=== PATIENT | male | born 1935 | race Caucasian/White ===

== ENCOUNTER 2021-02-07 16:25 | Emergency (ER) | payer MEDICARE, OTHER ==
[2021-02-07] MEDS ORDERED: Bacitracin 1 PK ONE (16:47)
== END 2021-02-07 17:00 | disposition home or self-care (01) ==
LOC: MADERS 16:25
DX: S41.111A Laceration without foreign body of right upper arm, initial encounter (principal); E03.9 Hypothyroidism, unspecified; Z79.899 Other long term (current) drug therapy; X58.XXXA Exposure to other specified factors, initial encounter; Y92.009 Unspecified place in unspecified non-institutional (private) residence as the place of occurrence of the external cause
CPT/HCPCS: 12002

== ENCOUNTER 2024-04-19 10:07 | Emergency (ER) | payer MEDICARE ==
[2024-04-19] MEDS ORDERED: Tetracaine 0.5% PF 4 ML BOT ONE (10:24)
== END 2024-04-19 11:00 | disposition home or self-care (01) ==
LOC: MADERS 10:07
DX: T15.01XA Foreign body in cornea, right eye, initial encounter (principal); E03.9 Hypothyroidism, unspecified
CPT/HCPCS: 99283

== ENCOUNTER 2025-05-04 17:14 | Emergency (ER) | payer MEDICARE | END 2025-05-04 18:20 | disposition home or self-care (01) | LOC: MADERS 17:14 | DX: S40.921A Unspecified superficial injury of right upper arm, initial encounter (principal); S00.81XA Abrasion of other part of head, initial encounter; W20.8XXA Other cause of strike by thrown, projected or falling object, initial encounter; Y93.89 Activity, other specified | CPT/HCPCS: 99282 ==